=== PATIENT | male | born 1950 | race Caucasian/White ===

== ENCOUNTER 2018-05-18 22:48 | Inpatient (IN) ==
[2018-05-19] MEDS ORDERED: Acetaminophen 325 MG Tablet PO PRN (04:37)
[2018-05-19] MEDS: Sod Chloride 0.9% Inj 1,000 ML IV.CONT SCH ×3 (10:00→23:00)
--- NOTE | 2018-05-19 10:27 | P.HPIM ---
History of Present Illness Primary Care Physician: Dr Trejo Chief Complaint: Chest pain History of Present Illness: 67-year-old male with known history of hypertension, hyperlipidemia, Gastrosoft reflux, history of esophageal cancer, history of pleurisy who presented to hospital for acute onset of chest pain. Patient states that he was in a normal state of health until last evening after he ate dinner approximately 6 PM when he got sudden onset of chest discomfort located middle part of his chest which is 8/10 on pain scale whenever he took a deep breath it went to a 10/10 on pain scale. He denied any nausea, vomiting, diaphoresis, lightheadedness, dizziness. There was significant pleuritic chest pain on every inspiration. Indicates that it is the same type of pain that he experienced when he was diagnosed with pleurisy in the past. 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 Patient came to emergency department for evaluation initial workup was unremarkable. Chest x-ray indicated bilateral mild infiltrates. Workup indicated sepsis. Patient was recommended admission for further evaluation and management. At the time of evaluating the patient he is still having significant pleuritic chest pain which is reproducible on palpation in the midsternal area. Review of Systems Review of Systems: all other systems reviewed are negative Cardiovascular: Reports chest pain Respiratory: Reports pain on inspiration and Reports dyspnea PMFSH Medical History Medical History GERD (gastroesophageal reflux disease) (Acute) HTN (hypertension) (Acute) High cholesterol (Acute) History of brain tumor (Acute) Hx of esophageal malignancy (Acute) Surgical History Surgical History History of cataract surgery (Acute) History of left knee surgery (Acute) Hx of resection of small bowel (Acute) Family History Family History Mother History of brain cancer Father Family history of heart disease Social History Social History Substance History: No History of Abuse Second Hand Smoke Exposure: No Smoking Status: Former smoker Number of Pack-Years (if former smoker): 45 Smoking End Date: Patient quit smoking 14 years ago How Often Do You Have a Drink Containing Alcohol: 2 to 3 times a week Recent Travel in [facility] within the Last 8 Weeks: No Recent Out of Country Travel within the Last 8 Weeks: No Medications and Allergies Allergies Allergy/AdvReac Type Severity Reaction Status Date / Time naproxen [From Naprosyn] Allergy Rash Verified 05/18/18 23:14 Home Medications Medication Instructions Recorded Confirmed Type amlodipine 10 mg PO DAILY 05/19/18 05/19/18 History aspirin [Aspirin Low Dose] 81 mg PO DAILY 05/19/18 05/19/18 History aspirin [Aspirin Low Dose] 81 mg PO DAILY 05/19/18 05/19/18 History atorvastatin 10 mg PO DAILY 05/19/18 05/19/18 History benazepril 10 mg PO DAILY 05/19/18 05/19/18 History esomeprazole magnesium [Nexium] 40 mg PO DAILY 05/19/18 05/19/18 History folic acid-vit B6-vit B12 [Folbic] 1 tab PO DAILY 05/19/18 05/19/18 History omeprazole 20 mg PO DAILY 05/19/18 05/19/18 History ranitidine HCl [Zantac] 150 mg PO HS 05/19/18 05/19/18 History Active Medications: Active Medications Acetaminophen (Tylenol) 650 mg PO Q4H PRN PRN Reason: Temp > 100.4 Hydrocodone Bitart/Acetaminophen ([place] 10/325) 1 tab PO Q6H PRN PRN Reason: PAIN SCALE 6 TO 10 Hydrocodone Bitart/Acetaminophen ([place] 5/325) 1 tab PO Q6H PRN PRN Reason: PAIN SCALE 1 TO 5 Albuterol (Duoneb Neb (Nany)) 1 ampul NEB Q6HR WHILE AWAKE NEB [facility] Last Admin: 05/19/18 07:20 Dose: 1 ampul Azithromycin 500 mg/ Sodium (Chloride) 250 mls @ 250 mls/hr IV.SIG Q24H NANY Sodium Chloride (Ns Inj) 1,000 mls @ 100 mls/hr IV.CONT .Q10H [facility] Last Admin: 05/19/18 10:00 Dose: 100 mls/hr Ceftriaxone Sodium 1,000 mg/ (Sodium Chloride) 100 mls @ 200 mls/hr IV.SIG Q24H NANY Ondansetron HCl (Zofran Inj) 4 mg IV.PUSH Q6H PRN PRN Reason: NAUSEA OR VOMITING Sodium Chloride (Ns Flush) 2 ml IV.FLUSH BID [facility] Last Admin: 05/19/18 08:12 Dose: Not Given Sodium Chloride (Ns Flush) 2 ml IV.FLUSH PRN PRN PRN Reason: FLUSH AFTER USING IV ACCESS Physical Exam Vital signs: Vital Signs 05/19/18 06:34 05/19/18 07:22 05/19/18 08:00 Temperature 97.1 F L 96.0 F L Pulse Rate 87 82 94 H Respiratory Rate 20 16 22 Blood Pressure 135/73 130/84 Pulse Oximetry 96 97 Intake & Output 05/18/18 05/19/18 05/19/18 18:59 06:59 18:59 Weight 102.512 kg Other: Date of Last Bowel Movement 05/18/18 Weight On Admission 102.512 kg Narrative: GENERAL: Well-developed, well-nourished, in no acute distress. alert and orientated HEENT: Head is normocephalic without any lesions or masses noted. Facial features are symmetric. Eyes: Pupils equal round reactive to light. Extraocular muscles are intact. Conjunctivae were clear. Oropharyngeal: Pharynx without any erythema edema. Tongue is midline without deviation. Buccal mucosa is moist without any masses or lesions NECK: Supple without any masses. Trachea midline no deviation. No JVD, no bruits are appreciated CARDIAC: Regular rhythm, regular rate. S1/S2 are heard. No murmurs gallops or rubs. Reproducible palpable tenderness noted in the midsternal region LUNGS: Clear to auscultation bilaterally. No wheeze, rhonchi or rales. No use of accessory muscles on inspiration or expiration. Patient with guarding inspiration due to pain on inspiration ABDOMEN: Soft, nontender. Nondistended. Bowel sounds heard in all 4 quadrants. No organomegaly or masses. Negative rebound, negative guarding EXTREMITIES: No edema, pulses are equal bilaterally. No cyanosis or clubbing NEUROLOGY: Mood and affect appear appropriate. Cranial nerves II through XII grossly intact. Muscle strength 5/5 in upper and lower extremities bilaterally. Deep tendon reflexes are 2+ in upper and lower extremities bilaterally. Caprini VTE Risk Assessment Caprini VTE Risk Assessment: Moderate/High Risk (score >= 2) Caprini Risk Assessment Model: Point Value = 1 Point Value = 2 Point Value = 3 Point Value = 5 Age 41-60 Minor surgery BMI > 25 kg/m2 Swollen legs Varicose veins or History of unexplained or recurrent spontaneous Oral contraceptives or hormone replacement Sepsis (< 1 month) Serious lung disease, including pneumonia (< 1 month) Abnormal pulmonary function Acute myocardial infarction Congestive heart failure (< 1 month) History of inflammatory bowel disease Medical patient at bed rest Age 61-74 Arthroscopic surgery Major open surgery (> 45 min) Laparoscopic surgery (> 45 min) Malignancy Confined to bed (> 72 hours) Immobilizing plaster cast Central venous access Age >= 75 History of VTE Family history of VTE Factor V Leiden Prothrombin [id number] Lupus anticoagulant Anticardiolipin antibodies Elevated serum homocysteine Heparin-induced thrombocytopenia Other congenital or acquired thrombophilia Stroke (< 1 month) Elective arthroplasty Hip, pelvis, or leg fracture Acute spinal cord injury (< 1 month) Prophylaxis Regimen: Total Risk Factor Score Risk Level Prophylaxis Regimen 0-1 Low Early ambulation 2 Moderate Order ONE of the following: *Sequential Compression Device (SCD) *Heparin 5000 units SQ BID 3-4 Higher Order ONE of the following medications: *Heparin 5000 units SQ TID *Enoxaparin/Lovenox 40 mg SQ daily (WT < 150 kg, CrCl > 30 mL/min) *Enoxaparin/Lovenox 30 mg SQ daily (WT < 150 kg, CrCl > 10-29 mL/min) *Enoxaparin/Lovenox 30 mg SQ BID (WT < 150 kg, CrCl > 30 mL/min) AND/OR *Sequential Compression Device (SCD) 5 or more Highest Order ONE of the following medications: *Heparin 5000 units SQ TID (Preferred with Epidurals) *Enoxaparin/Lovenox 40 mg SQ daily (WT < 150 kg, CrCl > 30 mL/min) *Enoxaparin/Lovenox 30 mg SQ daily (WT < 150 kg, CrCl > 10-29 mL/min) *Enoxaparin/Lovenox 30 mg SQ BID (WT < 150 kg, CrCl > 30 mL/min) AND *Sequential Compression Device (SCD) Assessment and Plan Plan Sepsis Patient meets criteria with leukocytosis, tachycardia, bilateral infiltrates Patient started on Rocephin, Zithromax for community acquired pneumonia Influenza testing was negative Lactic acid level was normal Blood cultures are pending Continue follow CBC Community-acquired pneumonia Continue antibiotics as above Duo nebs as needed Mucinex Pleuritic chest pain Likely secondary to bilateral pneumonia, however need to rule out other etiology Thus far patient has been ruled out with initial set of enzymes and EKG. However patient does have significant risk factors to include age, male, hypertension, hyperlipidemia, family history of heart disease, history of tobacco use We will obtain another set of cardiac enzymes and EKG to rule out acute coronary event CT of the chest does indicate bilateral bronchograms indicating bilateral consolidation/pneumonia D-dimer was negative, pulmonary emboli was ruled out Continue pain control for possible pleurisy Hypertension, hyperlipidemia, gastroesophageal reflux Continue home medications DVT prevention Sequential compression devices Discussed Condition With: Patient, nursing staff, Dr. Cuellar H&P: Quality VTE Deep Vein Thrombosis/Pulmonary Embolism Present on Admission: No
[2018-05-19] MEDS: guaiFENesin 600 MG ER Tablet PO SCH ×2 (10:54→20:38)
[2018-05-19 12:17] LABS: Creatine Kinase 73 U/L (39-308)
--- NOTE | 2018-05-19 13:13 | CT ---
EXAM DATE: 05/19/2018 12:45 PM EST AGE/SEX: 67 years / Male INDICATIONS: Substernal chest pain. CLINICAL DATA: This is the patient's initial encounter. Patient reports that signs and symptoms have been present for 1 day and indicates a pain score of 8/10. MEDICAL/SURGICAL HISTORY: Gastroesophageal reflux disease. Hypertension. Brain tumor. Esophageal cancer. Colon resection. RADIATION DOSE: 18.22 CTDI (mGy) COMPARISON: No prior exams available for comparison. TECHNIQUE: Multiple contiguous axial images were obtained through the chest without contrast. Image s were obtained in suspended respiration using multiple row detector helical technique. Using automa mahogany exposure control and adjustment of the mA and/or kV according to patient size, radiation dose was kept as low as reasonably achievable to obtain optimal diagnostic quality images. DICOM format imag e data is available electronically for review and comparison. FINDINGS: Lungs: The lungs are symmetrically aerated. There is consolidation in both posterior lower lobes wit h air bronchograms. There is a 1.2 x 0.7 cm noncalcified pulmonary nodule in the right anterior lung base. A second smaller 4 mm noncalcified pulmonary nodule right lower lobe.. Mediastinum: There is good visualization of the great vessels of the middle mediastinum. No evidenc e of mediastinal or hilar adenopathy/mass. Coronary artery calcifications are present. There is a sma ll amount of pericardial fluid present. Pleurae: No evidence of focal thickening or pleural effusion. Axillae: Unremarkable. Bony Structures: Unremarkable. Miscellaneous: The examination was extended to include the upper abdomen, and both adrenal glands ar e normal in size and configuration. CONCLUSION: 1. Areas of consolidation both posterior lower lobes with air bronchograms which could represent pne umonia or aspiration. 2. 1.2 x 0.7 cm noncalcified pulmonary nodule right lung base second smaller 4 mm noncalcified pulmo nary nodule as well. A three-month follow-up CT is recommended according to guidelines. Electronically signed by: Etienne Willard MD Board Certified Radiologist 05/19/2018 1:11 PM EST
[2018-05-19] MEDS ORDERED: Ketorolac Inj 30 MG/ML (IVP) Vial IV.PUSH ONE (15:41)
[2018-05-19] MEDS: amLODIPine 10 MG Tablet PO SCH (15:59)
[2018-05-19] MEDS: Famotidine 20 MG Tablet PO SCH (16:04)
[2018-05-19] MEDS: Lisinopril 10 MG Tablet PO SCH (16:04)
[2018-05-19] MEDS ORDERED: Ketorolac Inj 30 MG/ML (IVP) Vial IV.PUSH PRN (17:05)
--- NOTE | 2018-05-19 19:46 | ECG ---
Date Performed: 05/19/2018 Time Performed: 11:42:28 PTAGE: 67 years EKG: Sinus rhythm BORDERLINE LEFT AXIS DEVIATION BORDERLINE ECG NO PREVIOUS TRACING DOCTOR: Kamlesh Vasquez Interpretating Date/Time 05/19/2018 19:44:28
[2018-05-20] MEDS ORDERED: Azithromycin Inj 500 MG in Sodium Chlor 0.9% Inj 250 ML IV.SIG SCH (01:00)
[2018-05-20] MEDS: Sod Chloride 0.9% Inj 1,000 ML IV.CONT SCH (01:39)
[2018-05-20 06:53] LABS: Baso % (Auto) 0.4 % (0.0-2.0); Eos # (Auto) 0.1 th/mm3 (0.0-0.4); Eos % (Auto) 0.7 % (0.0-4.0); Hematocrit 38.9 % (39.0-51.0); Lymph # (Auto) 0.6 th/mm3 (1.0-4.8); Mean Corpuscular HGB Conc 33.5 % (32.0-36.0); Mean Corpuscular Hemoglobin 27.8 pg (27.0-34.0); Mean Platelet Volume 9.1 fL (7.0-11.0); Mono # (Auto) 1.1 th/mm3 (0.0-0.9); Mono % (Auto) 9.3 % (0.0-8.0); Neut # (Auto) 9.6 th/mm3 (1.8-7.7); Neut % (Auto) 84.6 % (16.0-70.0); Platelet Count 235 th/mm3 (150-450); Red Blood Count 4.69 mil/mm3 (4.50-5.90); Red Cell Distribution Width 12.9 % (11.6-17.2); White Blood Count 11.4 th/mm3 (4.0-11.0)
[2018-05-20 07:02] LABS: Potassium 4.3 meq/L (3.5-5.1)
[2018-05-20 07:07] LABS: Calcium 8.4 mg/dL (8.5-10.1); Carbon Dioxide 24.7 meq/L (21.0-32.0)
[2018-05-20] MEDS: Lisinopril 10 MG Tablet PO SCH (08:26)
[2018-05-20] MEDS: Famotidine 20 MG Tablet PO SCH (08:26)
[2018-05-20] MEDS: guaiFENesin 600 MG ER Tablet PO SCH (08:26)
[2018-05-20] MEDS: amLODIPine 10 MG Tablet PO SCH (08:26)
[2018-05-20 09:09] VITALS: BP 104/62; PULSE 125; RESP 18; TEMP 97.7; O2SAT 94
--- NOTE | 2018-05-20 10:43 | P.PNIM ---
Subjective Interval history: 67-year-old male who is seen examined in follow-up for bilateral pneumonia, chest discomfort, pleurisy. Patient states that he is doing much better. Pain is controlled with medication at this time. Denies any other symptoms. Patient is significantly improved. Patient very eager to go home. Vital signs are stable. Patient remains afebrile. Physical Exam Vital signs: Vital Signs 05/19/18 12:00 05/19/18 14:41 05/19/18 16:00 Temperature 98.4 F 97.0 F L Pulse Rate 94 H 93 H 106 H Respiratory Rate 20 16 20 Blood Pressure 121/83 124/81 Pulse Oximetry 95 95 95 05/19/18 19:30 05/19/18 20:00 05/20/18 00:00 Temperature 99.2 F 97.5 F L Pulse Rate 104 H 104 H 91 H Respiratory Rate 18 18 18 Blood Pressure 106/63 102/58 L Pulse Oximetry 94 L 90 L 90 L 05/20/18 07:16 05/20/18 09:08 Temperature 97.7 F Pulse Rate 86 125 H Respiratory Rate 16 18 Blood Pressure 104/62 Pulse Oximetry 95 94 L Intake & Output 05/19/18 05/20/18 05/20/18 18:59 06:59 18:59 Intake Total 960 / 960 1830 / 1830 Output Total 350 / 350 Balance 960 / 960 1480 / 1480 Weight 102.512 kg 104.4 kg Intake: IV 1350 / 1350 NS Inj 1,000 ML @ 100 mls/hr IV 1000 / 1000 .CONT .Q10H ARYA Rx#:[id number] Azithromycin Inj 500 MG In NS 250 / 250 Inj 250 ML @ 250 mls/hr IV.SIG Q24H [facility]YA Rx#:[id number] Rocephin Inj 1,000 MG In NS Inj 100 / 100 100 ML @ 200 mls/hr IV.SIG Q24H [facility]YA Rx#:[id number] Oral 960 / 960 Oral Supplement 480 / 480 Output: Urine 350 / 350 Other: # Voids 6 Date of Last Bowel Movement 05/18/18 05/18/18 Weight On Admission 102.512 kg Narrative: GENERAL: Well-developed, well-nourished, in no acute distress. alert and orientated HEENT: Head is normocephalic without any lesions or masses noted. Facial features are symmetric. Eyes: Extraocular muscles are intact. Conjunctivae were clear. NECK: Supple without any masses. Trachea midline no deviation. No JVD, CARDIAC: Regular rhythm, regular rate. S1/S2 are heard. No murmurs gallops or rubs. Reproducible palpable tenderness noted in the midsternal region LUNGS: Clear to auscultation bilaterally. No wheeze, rhonchi or rales. No use of accessory muscles on inspiration or expiration. Patient with guarding inspiration due to pain on inspiration ABDOMEN: Soft, nontender. Nondistended. Bowel sounds heard in all 4 quadrants. No organomegaly or masses. Negative rebound, negative guarding EXTREMITIES: No edema, pulses are equal bilaterally. No cyanosis or clubbing NEUROLOGY: Mood and affect appear appropriate. Cranial nerves II through XII grossly intact. Moving all extremities, speech is clear Results Labs CBC & Chem 7: 05/20/18 05:15 05/20/18 05:15 Labs: Microbiology 05/19/18 11:02 Nasal Wash Influenza Types A,B Antigen - Final Negative for FLU A and B antigen Infection due to influenza A or B cannot be ruled out since the antigen present in the sample may be below the detection limit of the test. Imaging Imaging: Impressions Chest CT 05/19/18 00:00 CONCLUSION: 1. Areas of consolidation both posterior lower lobes with air bronchograms which could represent pneumonia or aspiration. 2. 1.2 x 0.7 cm noncalcified pulmonary nodule right lung base second smaller 4 mm noncalcified pulmonary nodule as well. A three-month follow-up CT is recommended according to guidelines. Assessment and Plan Plan Sepsis, resolved Patient met criteria on admission with leukocytosis, tachycardia, bilateral infiltrates Continue Rocephin, Zithromax for community acquired pneumonia, changed to Ceftin, Zithromax p.o. upon discharge Influenza testing was negative Lactic acid level was normal Blood cultures are pending Continue follow CBC Community-acquired pneumonia Continue antibiotics as above Duo nebs as needed Mucinex Pleuritic chest pain Likely secondary to bilateral pneumonia, pleurisy Patient does have significant risk factors to include age, male, hypertension, hyperlipidemia, family history of heart disease, history of tobacco use. Patient was ruled out for acute coronary event with serial cardiac enzymes that are negative, serial EKGs reviewed by myself which did not indicate any acute changes We will obtain another set of cardiac enzymes and EKG to rule out acute coronary event CT of the chest does indicate bilateral bronchograms indicating bilateral consolidation/pneumonia D-dimer was negative, pulmonary emboli was ruled out Continue pain control for possible pleurisy Hypertension, hyperlipidemia, gastroesophageal reflux Continue home medications DVT prevention Sequential compression devices Discussed Condition With: Patient, nursing staff, Dr. Cuellar Discharge Planning: Patient originally anticipated to need at Least 2 midnights for recovery, but his overall assessment and status improved faster than expected. Discharge home in stable condition Activity: Ad lauri. Diet: Healthy heart diet Medication per medication reconciliation Follow-up with primary medical doctor in 1 week Progress Note: Quality VTE Deep Vein Thrombosis/Pulmonary Embolism Present on Admission: No
== END 2018-05-20 11:14 | disposition home or self-care (01) | DRG 871 ==
LOC: PHEDDLT 22:48 → PH3 22:48 → OBSVTOIN 05-19 06:06
PROVIDERS: ADMIT Hospitalist; ATTEND Hospitalist
CPT/HCPCS: 71010; 71045; 71250; 80048; 80053; 82550; 83605; 83690; 84484; 85025; 85379; 87040; 87275; 87276; 87804; 90765; 90767; 90775; 90776; 93005; 94640; 94664; 94665; 96365; 96367; 96375; 96376; 99285; J0456; J0696; J1885; J2270; J7030; J7050